=== PATIENT | male | born 2000 | race African-American/Black ===

== ENCOUNTER 2020-08-16 14:19 | Emergency (ER) | payer MEDICAID ==
[~2020-08-16] VITALS: Ht 182.9 cm; Wt 73.0 kg
[2020-08-16 14:39] VITALS: BP 100/70
== END 2020-08-16 15:30 | disposition left against medical advice (07) ==
LOC: ER 14:19
DX: Z53.21 Procedure and treatment not carried out due to patient leaving prior to being seen by health care provider (principal)

== ENCOUNTER 2020-08-19 12:21 | Emergency (ER) | payer MEDICAID ==
[~2020-08-19] VITALS: Ht 182.9 cm; Wt 73.0 kg
[2020-08-19 14:08] VITALS: BP 125/60
== END 2020-08-19 14:10 | disposition home or self-care (01) ==
LOC: ER 12:21
DX: R05 Cough (principal); N39.0 Urinary tract infection, site not specified; Z03.818 Encounter for observation for suspected exposure to other biological agents ruled out
CPT/HCPCS: 71045; 87635; 99284